=== PATIENT | male | born 1965 | race Caucasian/White ===

== ENCOUNTER 2017-03-20 08:52 | Outpatient (CLI) | payer BC ==
--- NOTE | 2017-03-20 11:05 | ULT ---
ABDOMINAL SONOGRAM: HISTORY: Upper abdomen pain. Abnormal liver function tests. FINDINGS: The gallbladder has a normal appearance without evidence of stones. The common duct is 0.5 cm in di ameter. The liver is diffusely hyperechoic without focal mass or intrahepatic biliary dilatation ev ident. The spleen is 13 cm in length without focal abnormality. No free fluid is visible. At the superior pole of the left kidney, a focal lobulation is 5.4 cm in greatest diameter. Calcification of the kidney is favored to be vascular in origin. The right kidney has a normal appearance. The v isualized portions of the abdominal aorta, the IVC, and the pancreas are unremarkable. IMPRESSION: 1. Focal mass like prominence of the superior pole, left kidney. Please consider CT of the kidneys , with and without intravenous contrast, for better characterization. 2. Hepatosteatosis. Mild splenomegaly may be related to portal venous hypertension. 4. No evidence of gallstones or biliary obstruction. POS: [facility]
== END 2017-03-20 08:53 | disposition home or self-care (01) ==
LOC: NAV ULT 08:52
PROVIDERS: ATTEND Internal Medicine Gastroenterology
DX: R10.9 Unspecified abdominal pain (principal); K76.0 Fatty (change of) liver, not elsewhere classified; R16.1 Splenomegaly, not elsewhere classified
CPT/HCPCS: 76700

== ENCOUNTER 2017-05-25 09:30 | Emergency (ER) | payer BC ==
[2017-05-25 10:16] LABS: ALT (SGPT) 119 U/L (8-55); AST (SGOT) 136 U/L (5-34); Albumin 4.7 g/dL (3.5-5.0); Alkaline Phosphatase 96 U/L (40-150); Anion Gap 15 mmol/L (10-20); BUN (Urea Nitrogen) 10 mg/dL (8.4-25.7); Bilirubin, Total 0.7 mg/dL (0.2-1.2); Calc. Creatinine Clearance 0 mL/min (70-130); Calcium 9.4 mg/dL (7.8-10.44); Carbon Dioxide 22 mmol/L (22-29); Chloride 103 mmol/L (98-107); Estimated GFR-MDRD Greater than 90; Globulin 3.3 g/dL (2.4-3.5); Glucose 140 mg/dL (70-105); Potassium 4.4 mmol/L (3.5-5.1); Sodium 136 mmol/L (136-145)
[2017-05-25 10:18] LABS: CKMB 1.5 ng/mL (0-6.6); Troponin I Less than 0.010 ng/mL (< 0.028)
[2017-05-25 10:25] LABS: #Basophils 0.1 thou/uL (0.0-0.2); #Eosinphils 0.5 thou/uL (0.0-0.7); #Lymphocytes 1.2 thou/uL (1.20-3.40); #Monocytes 0.5 thou/uL (0.11-0.59); #Neutrophils 4.3 thou/uL (1.40-6.50); %Basophils 1.4 % (0.0-1.0); %Eosinophils 7.2 % (0.0-10.0); %Lymphocytes 18.2 % (21.0-51.0); %Monocytes 7.9 % (0.0-10.0); %Neutrophils 65.3 % (42.0-75.0); Hemoglobin 15.1 g/dL (14.0-18.0); Mean Corpuscular HGB CONC 32.1 g/dL (32.0-36.0); Mean Corpuscular Hemoglobin 31.8 pg (27.0-31.0); Mean Corpuscular Volume 99.1 fl (80.0-94.0); Mean Platelet Volume 5.3 fL (7.4-10.4); Platelet Count 294 thou/uL (130-400); RBC Distribution Width 12.1 % (11.5-14.5); Red Blood Cell (RBC) Count 4.76 mill/uL (4.70-6.10); White Blood Cell (WBC) Count 6.6 thou/uL (4.8-10.8)
--- NOTE | 2017-05-25 10:25 | RAD ---
FRONTAL RADIOGRAPH CHEST: DATE: 05/25/17. COMPARISON: None. HISTORY: A 52-year-old male with heart palpitations. FINDINGS: The cardiac silhouette is prominent. No pneumothorax, pleural fluid, lobar consolidation, or alveola r edema. There is mild increased density in the medial right base suggesting vascular structures and /or volume loss. IMPRESSION: No focal consolidation or alveolar edema. POS: [facility]
[2017-05-25 10:54] LABS: Bilirubin Negative (Negative); Blood, Urine Negative (Negative); Clarity Clear (Clear); Glucose, Urine (Dipstick) Negative (Negative); Leukocyte Negative (Negative); Nitrite Negative (Negative); Protein, Urine (Dipstick) Negative (Neg-Trace); Urobilinogen 0.2 mg/dL (0.2-1.0)
[2017-05-25 11:05] LABS: Amphetamine Not Detected (NotDetected); Barbiturates Screen Not Detected (NotDetected); Benzodiazepine Screen Detected (NotDetected); Cocaine Metabolite Screen Not Detected (NotDetected); Medtox Control Line Valid? VALID (VALID); Methadone Not Detected (NotDetected); Methamphetamine Not Detected (NotDetected); Opiate Screen Not Detected (NotDetected); Oxycodone Screen Not Detected (NotDetected); Phencyclidine (PCP) Not Detected (NotDetected); THC/Cannabinoid Screen Not Detected (NotDetected); Tricyclic Screen Detected (NotDetected)
== END 2017-05-25 11:35 | disposition home or self-care (01) ==
LOC: NAV ERS 09:30
DX: R00.0 Tachycardia, unspecified (principal); R00.2 Palpitations; R74.0 Nonspecific elevation of levels of transaminase and lactic acid dehydrogenase [LDH]; I10 Essential (primary) hypertension; F41.9 Anxiety disorder, unspecified; F32.9 Major depressive disorder, single episode, unspecified; Z79.899 Other long term (current) drug therapy
CPT/HCPCS: 71010; 80053; 80306; 81003; 82553; 84443; 84484; 85025; 93005; 94760

== ENCOUNTER 2017-12-08 08:50 | Outpatient (CLI) | payer BC | END 2017-12-08 08:51 | disposition home or self-care (01) | LOC: NAV DTY OP 08:50 | PROVIDERS: ATTEND Family Medicine | DX: E11.9 Type 2 diabetes mellitus without complications (principal) | CPT/HCPCS: 97802 ==